=== PATIENT | female | born 1980 | race African-American/Black ===

== ENCOUNTER 2023-09-06 08:30 | Emergency (ER) | payer MEDICAID, OTHER ==
[2023-09-06 08:44] VITALS: BP 118/78; O2SAT 99
--- NOTE | 2023-09-06 08:47 | ED Physician Documentation ---
History of Present Illness - Stated complaint Stated Complaint: MED REFILL - Chief complaint Chief Complaint: General - Additonal information Additional information: Patient 43-year-old female presenting to the emergency department with chief complaint medication refill. Endorses for history of ADHD for which she has taken Adderall in the past as well as depression and anxiety. Is currently staying in the local [facility]. Reports most recently is moving here from [place] however is also receiving medications in [place]. Denies suicidal or homicidal ideation. Reports she has taken Atarax in the past with successful improvement to her symptoms. Also states that she is actively looking for primary care to get established with. Review of Systems Constitutional: denies: Fever Eyes: denies: Loss of vision Ears: denies: Loss of hearing Nose: denies: Rhinorrhea / runny nose Throat: denies: Dental pain / toothache Cardiac: denies: Chest pain / pressure Respiratory: denies: Dyspnea GI: denies: Abdominal Pain : denies: Dysuria Skin: denies: Rash Musculoskeletal: denies: Neck pain Neurologic: denies: Generalized weakness Psychiatric: reports: Depressed, Anxiety, Other. denies: Suicidal, Homicidal, Hallucinations, Delusions, Insomnia, Reviewed and negative PD PAST MEDICAL HISTORY - Past Medical History Past Medical History: No Psych: ADD/ADHD - Past Surgical History Past Surgical History: Yes - Present Medications Home Medications: Ambulatory Orders Medication Instructions Recorded Confirmed hydrOXYzine HCL [Hydroxyzine HCl] 25 mg PO TID PRN #20 tablet 09/06/23 - Allergies Allergies/Adverse Reactions: Allergies Allergy/AdvReac Type Severity Reaction Status Date / Time No Known Drug Allergies Allergy Verified 09/06/23 08:40 - Social History Does the pt smoke?: No Smoking Status: Never smoker PD ED PE NORMAL - Vitals Vital signs reviewed: Yes - General General: Alert and oriented X 3, No acute distress - HEENT HEENT: Atraumatic - Respiratory Respiratory: No respiratory distress - Female Female : Deferred - Rectal Rectal: Deferred - Derm Derm: Normal color - Extremities Extremities: No deformity - Neuro Neuro: Alert and oriented X 3, 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 Denies plans for self- harm, illicit substance abuse, auditory or visual hallucinations. Reports symptoms consistent with her baseline ADHD.) Results - Vitals Vitals: Vital Signs - 24 hr 09/06/23 08:34 Temperature 36.2 C L Heart Rate 82 Respiratory 18 Rate Blood Pressure 118/78 O2 Saturation 99 PD Medical Decision Making - ED course Complexity details: d/w patient ED course: Patient 43-year-old female presenting to the emergency department requesting information for local area PCP as well as medication refill. Reported history of taking medication for depression which she was unable to name as well as Adderall for ADHD. States has been seen in an emergency room in [place] recently and was told that she could not get her Adderall refilled but was given a prescription for hydroxyzine and would like a refill of this medication. Did report a history of depression but denied any suicidality or thoughts of self- harm. Demonstrated clear forward thinking and her primary reason for coming to the emergency department was for information in order to establish yourself with a PCP. Will provide list of local area PCPs for follow-up. Will write prescription for Atarax. Clear return precautions given. Departure - Departure Disposition: 01 Home, Self Care Clinical Impression: Medication refill Prescriptions: hydrOXYzine HCL [Hydroxyzine HCl] 25 mg PO TID PRN #20 tablet PRN Reason: Anxiety Comments: [facility] I written a prescription to refill your hydroxyzine. Please use this only as directed and as needed. Additionally you will find a list of local area PCPs in this discharge packet. Please follow-up with them as able. If it anytime you have new or worsening symptoms please return to the emergency department.
== END 2023-09-06 09:17 | disposition home or self-care (01) ==
LOC: ED 08:30
DX: Z76.0 Encounter for issue of repeat prescription (principal)
CPT/HCPCS: 99281; 99282